=== PATIENT | female | born 1995 | race Native Hawaiian/Other Pacific Islander ===

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

== ENCOUNTER 2019-11-01 18:03 | Emergency (ER) | payer OTHER ==
[~2019-11-01] VITALS: Ht 165.1 cm; Wt 60.8 kg
[2019-11-01 18:12] VITALS: TEMP 99.1
[2019-11-01 19:02] LABS: POTASSIUM 3.6 mmol/L (3.6-5.2)
[2019-11-01 19:04] LABS: PLATELET COUNT 230 K/uL (152-353)
[2019-11-01 19:30] VITALS: BP 129/80
== END 2019-11-01 19:30 | disposition short-term general hospital (02) ==
LOC: ED 18:03
DX: S39.81XA Other specified injuries of abdomen, initial encounter (principal); Z3A.26 26 weeks gestation of pregnancy; V49.3XXA Car occupant (driver) (passenger) injured in unspecified nontraffic accident, initial encounter; Y92.89 Other specified places as the place of occurrence of the external cause
CPT/HCPCS: 36415; 80053; 85027; 93005; 96360; 99284

== ENCOUNTER 2020-01-09 02:05 | Emergency (ER) | payer OTHER ==
[~2020-01-09] VITALS: Ht 165.1 cm; Wt 60.8 kg
[2020-01-09 02:26] LABS: PLATELET COUNT 175 K/uL (152-353)
[2020-01-09 02:52] VITALS: BP 142/86; TEMP 98.9
[2020-01-09 02:53] LABS: POTASSIUM 3.8 mmol/L (3.6-5.2)
== END 2020-01-09 03:04 | disposition short-term general hospital (02) ==
LOC: ED 02:05
PROVIDERS: Emergency Medicine Emergency Medical Services
DX: O60.03 Preterm labor without delivery, third trimester (principal); Z3A.36 36 weeks gestation of pregnancy
CPT/HCPCS: 36415; 80053; 85027; 96360; 99284

== ENCOUNTER 2022-04-30 | Emergency (ER) | payer OTHER ==
[~2022-04-30] VITALS: Ht 162.6 cm; Wt 59.0 kg
[2022-04-30 00:53] LABS: PLATELET COUNT 212 K/uL (152-353)
[2022-04-30 00:57] LABS: POTASSIUM 3.5 mmol/L (3.6-5.2)
[2022-04-30 01:50] VITALS: BP 124/76; TEMP 98.5
== END 2022-04-30 01:55 | disposition home or self-care (01) ==
LOC: ED
PROVIDERS: Emergency Medicine
DX: R10.11 Right upper quadrant pain (principal)
CPT/HCPCS: 80053; 80320; 81002; 81025; 82150; 83690; 85027; 99283; Q9963